=== PATIENT | female | born 1990 | race Caucasian/White ===

== ENCOUNTER 2020-04-04 16:02 | Inpatient (IN) | payer OTHER ==
[~2020-04-04] VITALS: Ht 170.2 cm; Wt 114.1 kg
[~2020-04-04 16:02] MED LIST: ALBU90I INH; AZIT500 PO; DOXY100 PO; HYDACE5 PO; HYDACE5325 PO; Hydroxyzine HCl50 MG; NAPR500 PO; NAPR550 PO; ONDA4ODT; PRED20 PO; PROM12.5S PR; PROM25 PO; Prilosec Otc20 MG PO; RANI150 PO; RXHYD5325 PO; Verotin-Gr Cap1 EACH PO; YASMINE
[2020-04-18] MEDS ORDERED: CITA20 PO (15:53)
[2020-04-18] MEDS ORDERED: ZYRTEC10 M2 PO (15:53)
[2020-04-19] MEDS ORDERED: MELA3 PO (09:09)
[2020-04-19] MEDS ORDERED: DIPH50 PO (09:10)
--- NOTE | 2020-04-19 09:30 | NUR ---
History, Chart, Medications and Allergies reviewed before start of procedure. Lungs clear T/O to Auscultation. Pre-Op teaching done. Pt verbalizes understanding. Patient reports completing Chlorhexadine shower X1 prior to admission to hospital.Patient confirms NPO status and agrees with scheduled surgery.
--- NOTE | 2020-04-19 09:59 | NUR ---
DR LARA AT BEDSIDE
--- NOTE | 2020-04-19 12:45 | NUR ---
PT ARRIVED TO ROOM 228 FROM PACU S/P PRIYA PT ASSISTED INTO BED SKINNY JULIONORMAN PT IS DROWSY FALLS BACK TO SLEEP PT HAS TRANVERSE DRESSING WITH SMALL AMT OF DRAINAGE BIOX 91% ON RA PLACED ON 2 L NC WILL ATTEMPT TO WEAN WHEN MORE ALERT
--- NOTE | 2020-04-19 15:44 | NUR ---
PT HAVING INC NAUSEA DRY HEAVES NO EMESIS ZOFRAN 4 MG IVP GIVEN
--- NOTE | 2020-04-19 17:50 | NUR ---
PT HAD EST 100 ML EMESIS AFTER HER MEAL NEXT DOSE OF ZOFRAN DUE AT 194
[2020-04-20 03:45] LABS: BASOPHILS ABSOLUTE AUTO 0.03 K/mm3 (0.00-0.23); BASOPHILS PERCENT AUTO 0 % (0-2); EOSINOPHILS ABSOLUTE AUTO 0.02 K/mm3 (0.00-0.68); EOSINOPHILS PERCENT AUTO 0 % (0-6); Hematocrit 34.2 % (33.0-51.0); Hemoglobin 10.8 g/dL (11.5-16.0); IMMATURE GRAN ABSOLUTE AUTO 0.03 K/mm3 (0.00-0.10); IMMATURE GRAN PERCENT AUTO 0 % (0-1); LYMPHOCYTES ABSOLUTE AUTO 1.77 K/mm3 (0.84-5.20); LYMPHOCYTES PERCENT AUTO 15 % (21-46); MONOCYTES PERCENT AUTO 9 % (4-13); Mean Corpuscular HGB 28.2 pg (26.0-34.0); Mean Corpuscular HGB Conc 31.6 g/dL (31.5-36.5); Mean Corpuscular Volume 89 fL (80-100); Mean Platelet Volume 9.4 fL (9.1-12.4); NEUTROPHILS PERCENT AUTO 75 % (41-73); Platelet Count 298 K/mm3 (150-400); RDW Coefficient Variation 15.5 % (11.7-14.2); RDW Standard Deviation 50.6 fL (35.1-46.3); Red Blood Cell Count 3.83 M/mm3 (3.80-5.20); White Blood Cell Count 11.65 K/mm3 (4.00-11.30)
--- NOTE | 2020-04-20 05:09 | NUR ---
PATIENT SLEPT FOR HALF OF THE NIGHT. 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 WHE REPORTS PRESSING HER CONTROL EVER 1-2 HOURS. FC DRAINING SEDEMENTOUS YELLOW URINE, NO RECENT HX OF UTI, OR KIDNEY ISSUE. O2 WAS TURNED OFF AT THE BEGINNING OF THE SHIFT, BIOX 98% ON RA. LUNGS ARE CLEAR. ABD DRESSING WITH OLD BLOOD, NO EVIDENCE OF BLEEDING OR INFECTION. UP TO THE RECLINER EARLY AM. PATIENT DID VERY WELL WITH MINIMAL ASSIST. NO ACUTE CHANGES
[2020-04-20] MEDS ORDERED: Percocet 5-3251 EACH PO (12:31)
[2020-04-20] MEDS ORDERED: IBUP800 PO (12:33)
== END 2020-04-20 13:41 | disposition home or self-care (01) | DRG 743 ==
LOC: SURS 04-19 08:23 → PRE IP 04-19 10:00 → SURS 04-19 12:38
PROVIDERS: ADMIT Obstetrics & Gynecology
PROC: 0UT70ZZ Resection of Bilateral Fallopian Tubes, Open Approach (ICD-10-PCS; 2020-04-19)
PROC: 0UT10ZZ Resection of Left Ovary, Open Approach (ICD-10-PCS; 2020-04-19)
PROC: 0UT90ZZ Resection of Uterus, Open Approach (ICD-10-PCS; principal; 2020-04-19 10:00)
DX: N80.9 Endometriosis, unspecified (principal)
CPT/HCPCS: 36415; 85025; J0461; J1100; J1885; J2250; J2270; J2405; J2704; J2710; J2765; J3010; J7120

== ENCOUNTER 2023-10-27 09:43 | Day surgery (SDC) | payer BC, OTHER ==
[~2023-10-27] VITALS: Ht 167.6 cm; Wt 120.8 kg
[~2023-10-27 09:43] MED LIST changes: +CITA20 PO; +DIPH50 PO; +IBUP800 PO; +MELA3 PO; +Percocet 5-3251 EACH PO; +ZYRTEC10 M2 PO
--- NOTE | 2023-10-27 10:03 | NUR ---
10/27/23 1003 Agueda Gonzalez PT VERY NERVOUS, BORDERLINE CRYING AT SCALE. ASKED FOR SOME RELAXING MEDICATION. LET PT KNOW SHE WOULD HAVE TO SEE THE DOCTOR'S BEFORE RECEIVING MEDICATION.
[2023-10-27] MEDS ORDERED: UNISOM SIMPLE2.5 MG PO (10:06)
[2023-10-27] MEDS ORDERED: Ventolin5 MG/1 ML INH (10:07)
--- NOTE | 2023-10-27 11:13 | NUR ---
10/27/23 1113 Judy Gandara HEAD ON DONUT, PILLOW UNDER KNEES, RIGHT ARM TUCKED, LEFT ARM IN SLED, HEAD SECURED WITH TAPE BY DR GRAY.
--- NOTE | 2023-10-27 12:26 | NUR ---
10/27/23 1226 Miah David FENTANYL 25MCG GIVEN AT 1225 FOR 8/10WORST PAIN TO NOSE
[2023-10-27 12:30] VITALS: BP 109/73
== END 2023-10-27 13:24 | disposition home or self-care (01) ==
LOC: ORSCSDS 09:43
PROVIDERS: Otolaryngology
PROC: 09SL0ZZ Reposition Nasal Turbinate, Open Approach (ICD-10-PCS; principal; 2023-10-27 11:00)
PROC: 09BM0ZZ Excision of Nasal Septum, Open Approach (ICD-10-PCS; principal; 2023-10-27 11:00)
DX: J34.2 Deviated nasal septum (principal); J34.3 Hypertrophy of nasal turbinates; J45.909 Unspecified asthma, uncomplicated; E66.01 Morbid (severe) obesity due to excess calories; Z68.41 Body mass index [BMI] 40.0-44.9, adult; Z79.899 Other long term (current) drug therapy
CPT/HCPCS: A9270; J0171; J1100; J2250; J2405; J2704; J3010; J7120